=== PATIENT | female | born 1950 | race Two or more races ===

== ENCOUNTER 2024-09-29 13:31 | Inpatient (IN) | payer OTHER ==
[~2024-09-29] VITALS: Ht 157.5 cm; Wt 73.4 kg
--- NOTE | 2024-09-29 14:12 | DVH ---
CHEST RADIOGRAPH Indication: sob Technique: Single frontal view of the chest was obtained Comparison: None FINDINGS: Lines and Tubes: None Lungs: No focal consolidation. Pleura: No effusion. No pneumothorax. Cardiomediastinal contours: Unremarkable Bones: No acute osseous abnormality. IMPRESSION: 1. No acute cardiopulmonary disease. HS:Y
[2024-09-29] MEDS: SODIUM CHLORIDE 0.9% 1,000 ML IV ONE (14:14)
[2024-09-29] MEDS: AMIODARONE BOLUS KIT 100 ML IV ONE (14:14)
[2024-09-29 14:15] VITALS: PULSE 207; RESP 20; O2SAT 95
--- NOTE | 2024-09-29 14:15 | ED.PDOC ---
Bin. trauma (HPI) HPI Comments 74 y/o F, with PMhx of HTN, ESRD, and osteoporosis presents to the ED for CC of fall injury. Patient states, she had a fall yesterday (09/28/22) and was seen at [facility] and was relayed to the ED d/t abnormal EKG. Upon arrival to the ED, patient's EKG showed a HR at 153 with AFib, RVR. Follow ing trauma, patient c/o right sided pain. Patient denies chest pain, shortness of breath, headache, dizziness, numbness, or weakness. No other symptoms or modifying factors are present at this time. Chief Complaint: Fall Injury Time Seen by MD: 14:00 Reviewed notes: Nurses Notes, Medications, Allergies Allergies: Coded Allergies: Iodine (Verified Allergy, Unknown, 09/29/24) Latex (Verified Allergy, Unknown, 09/29/24) Information Source: Patient Mode of Arrival: Ambulatory Severity: Moderate Timing: Days Duration: Since onset Prehospital treatment: None Location: Other (right side) Location of laceration: None Mechanism: Fall Associated signs and symtoms: None Past Medical History PAST MEDICAL HISTORY: Denies Surgical History: Denies all surgeries STILL PHOTOGRAPHER History: Denies all STILL PHOTOGRAPHER Hx Family History Family History: Unknown Social History Smoker: Non-Smoker Alcohol: Denies ETOH Use Drugs: Denies Drug Use Lives In: Home Constitutional: denies: chills, diaphoresis, fatigue, fever, malaise, sweats, weakness, others EENTM: denies: blurred vision, double vision, ear bleeding, ear discharge, ear drainage, ear pain, ear ringing, eye pain, eye redness, hearing loss, mouth pain, mouth swelling, nasal discharge, nose bleeding, nose congestion, nose pain, photophobia, tearing, throat pain, throat swelling, voice changes, others Respiratory: denies: cough, hemoptysis, orthopnea, SOB at rest, shortness of breath, SOB with excertion, stridor, wheezing, others Cardiovascular: denies: chest pain, dizzy spells, diaphoresis, Dyspnea on exertion, edema, irregular heart beat, left arm pain, lightheadedness, palpitations, PND, syncope, others Gastrointestinal: denies: abdomen distended, abdominal pain, blood streaked bowels, constipated, diarrhea, dysphagia, difficulty swallowing, hematemesis, melena, nausea, poor appetite, poor fluid intake, rectal bleeding, rectal pain, vomiting, others Genitourinary: denies: abnormal vagina bleeding, burning, dyspareunia, dysuria, flank pain, frequency, hematuria, incontinence, pain, , vagina discharge, urgency, others Neurological: denies: dizziness, fainting, headache, left sided numbness, left sided weakness, numbness, paresthesia, pre-existing deficit, right sided numbness, right sided weakness, seizure, speech problems, tingling, tremors, weakness, others Musculoskeletal: reports: others (right sided pain); denies: back pain, gout, joint pain, joint swelling, muscle pain, muscle stiffness, neck pain Integumetry: denies: bruises, change in color, change in hair/nails, dryness, laceration, lesions, lumps, rash, wounds, others Allergic/Immunocompromised: denies: Difficulty Healing, Frequent Infections, Hives, Itching, others Hematologic/Lymphatic: denies: anemia, blood clots, easy bleeding, easy bruising, swollen glands, others Endocrine: denies: excessive hunger, excessive sweating, excessive thirst, excessive urination, flushing, intolerance to cold, intolerance to heat, unexplained weight gain, unexplained weight loss, others Psychiatric: denies: anxiety, bipolar disorder, depression, hopeless, panic disorder, schizophrenia, sleepless, suicidal, others All Other Systems: Reviewed and Negative Physical Exam General Appearance: Moderate Distress HEENT: Normal ENT Inspection, Pharynx Normal, TMs Normal Neck: Full Range of Motion, Non-Tender, Normal, Normal Inspection Respiratory: Chest Non-Tender, Lungs Clear, No Accessory Muscle Use, No Respiratory Distress, Normal Breath Sounds Cardiovascular: Irregular, Tachycardia Breast Exam: Deferred Gastrointestinal: No Organomegaly, Non Tender, No Pulsatile Mass, Normal Bowel Sounds, Soft Genitalia: Deferred Pelvic: Deferred Rectal: Deferred Extremities: No calf tenderness, No pedal edema Musculoskeletal : Apperance: Normal Neurologic: Alert Cerebellar Function: NOT DONE Reflexes: NOT DONE Skin: Dry, Normal Color, Warm Peripheral Pulses: 3+ Radial (R), 3+ Radial (L) Lymphatic: No Adenopathy Was a procedure done? Was a procedure done?: No EKG EKG : Pulse Rate (adult): 153 [place]: Normal Cardiac Rhythm: Afib Block: None Hypertrophy: None ST: Normal Comments rapid ventricular response Differential Diagnosis Multiple Trauma: Fractures, Spine Injury, Hematoma X-Ray, Labs, Meds, VS Vital Signs Date Time Temp Pulse Resp B/P (MAP) Pulse Ox O2 Delivery O2 Flow Rate FiO2 09/29/24 16:00 45 12 148/93 (111) 99 09/29/24 15:00 48 15 143/91 (108) 98 09/29/24 14:14 153 09/29/24 14:08 207 25 129/82 (98) 95 09/29/24 13:33 97.8 86 16 138/89 97 97.8 Lab Test 09/29/24 14:08 Range/Units White Blood Count 7.4 4.4-10.8 10^3/uL Red Blood Count 5.04 4.0-5.20 10^6/uL Hemoglobin 15.9 12.2-16.2 g/dL Hematocrit 46.3 H 36.0-46.0 % Mean Corpuscular Volume 92.0 80.0-100.0 fL Mean Corpuscular Hemoglobin 31.5 28.0-32.0 pg Mean Corpuscular Hemoglobin Concent 34.3 32.0-36.0 g/dL Red Cell Distribution Width 13.4 11.8-14.3 % Platelet Count 216 140-450 10^3/uL Mean Platelet Volume 9.3 6.9-10.8 fL Neutrophils (%) (Auto) 66.8 37.0-80.0 % Lymphocytes (%) (Auto) 26.0 10.0-50.0 % Monocytes (%) (Auto) 5.2 0.0-12.0 % Eosinophils (%) (Auto) 1.5 0.0-7.0 % Basophils (%) (Auto) 0.5 0.0-2.0 % Neutrophils # (Auto) 4.9 1.6-8.6 10 ^3/uL Lymphocytes # (Auto) 1.9 0.4-5.4 10 ^3/uL Monocytes # (Auto) 0.4 0-1.3 10 ^3/uL Eosinophils # (Auto) 0.1 0-0.8 10 ^3/uL Basophils # (Auto) 0 0-0.2 10 ^3/uL Nucleated Red Blood Cells 0.1 % Sodium Level 142 136-145 mmol/L Potassium Level 4.2 3.5-5.1 mmol/L Chloride Level 106 98-107 mmol/L Carbon Dioxide Level 25 20-31 mmol/L Anion Gap 11 5-15 Blood Urea Nitrogen 16 9-23 mg/dL Creatinine 0.86 0.550-1.02 mg/dL Glomerular Filtration Rate Calc 70 >90 mL/min BUN/Creatinine Ratio 18.6 10.0-20.0 Serum Glucose 105 74-106 mg/dL Calcium Level 9.5 8.7-10.4 mg/dL Troponin I High Sensitivity 301 *H </=34 ng/L Current Medications Medications (Trade) Dose Ordered Sig/Holli Route Start Time Stop Time Status Last Admin Sodium Chloride 1,000 ml @ 150 mls/hr Q6H40M ONCE IV 09/29/24 14:00 09/29/24 20:39 09/29/24 14:14 Amiodarone HCl 100 ml @ 600 mls/hr ONCE ONCE IV 09/29/24 14:00 09/29/24 14:09 DC 09/29/24 14:14 [place] [id number] Ph: [phone] DIAGNOSTIC IMAGING Diagnostic Imaging Report : [id number] Signed PATIENT: FLIP GREY ACCT: [id number] UNIT: [id number] : 1950 LOC: ER ROOM / BED: / AGE / SEX: 74 / F ADM STATUS: REG ER SERVICE 1347 ORDERING PHYSICIAN: JENNIFER EASON MD PROCEDURE(s): CXRP - CHEST PORTABLE REASON: sob ORDER NUMBER(s): [id number], ACCESSION NUMBER(s): [id number] CHEST RADIOGRAPH Indication: sob Technique: Single frontal view of the chest was obtained Comparison: None FINDINGS: Lines and Tubes: None Lungs: No focal consolidation. Pleura: No effusion. No pneumothorax. Cardiomediastinal contours: Unremarkable Bones: No acute osseous abnormality. IMPRESSION: 1. No acute cardiopulmonary disease. HS:Y ATED BY: FLY BOCANEGRA Jr., DO DICTATED DATE/TIME: 09/29/24 1409 SIGNED BY: FLY BOCANEGRA Jr., DO SIGNED DATE/TIME: 09/29/24 1409 CC: Patient alert. Status post fall. Heart rate irregular. Answering questions. EKG does show atrial fibrillation. Started amiodarone. Chest x-ray reviewed does not show any acute changes. Cardiac marker elevated. CT of the head reviewed does show relax brain. Was given Lovenox. Explained to the patient. Continue monitoring. Time of 1ST Reevaluation: 14:30 Reevaluation 1ST: Unchanged Patient Education/Counseling: Diagnosis, Treatment Family Education/Counseling: No Family Present Departure 1 Departure Time of Disposition: 16:44 Impression: Primary Impression: Atrial fibrillation Qualified Codes: I48.0 - Paroxysmal atrial fibrillation Additional Impression: Demand ischemia Disposition: ADMITTED INPATIENT Admit to: Med Surg Condition: Guarded Critical Care Note Critical Care Time?: Yes (90 min-critical care time only) Critical care comment: Started amiodarone Stability Stability form required: No Heart Score Heart Score: Heart Score Response (Comments) Value History Slightly Suspicious 0 EKG Normal 0 Age >65 2 Risk Factors >3 or Hx ASHD 2 Troponin >3 x's Normal limit 2 Total 6 I personally scribed for JENNIFER EASON MD ([email or web address]) on 09/29/24 at 14:14. Electronically submitted by Amy Millard ([email or web address]). I personally scribed for JENNIFER EASON MD ([email or web address]) on 09/29/24 at 15:25. Electronically submitted by Amy Millard [email or web address]). JENNIFER EASON MD Sep 29, 2024 14:14
[2024-09-29 14:22] LABS: Hematocrit 46.3 % (36.0-46.0); Hemoglobin 15.9 g/dL (12.2-16.2); Mean Corpuscular Hemoglobin 31.5 pg (28.0-32.0); Mean Corpuscular Volume 92.0 fL (80.0-100.0); Nucleated Red Blood Cells % 0.1 %
[2024-09-29 14:28] LABS: Anion Gap 11 (5-15); Carbon Dioxide 25 mmol/L (20-31); Chloride 106 mmol/L (98-107); Potassium 4.2 mmol/L (3.5-5.1); Sodium 142 mmol/L (136-145)
[2024-09-29 14:29] LABS: Calcium 9.5 mg/dL (8.7-10.4)
[2024-09-29] MEDS: AMIODARONE 360mg/200mL PREMIX 200 ML IV ONE (14:30)
[2024-09-29 14:34] LABS: BUN/Creatinine Ratio 18.6 (10.0-20.0); Blood Urea Nitrogen 16 mg/dL (9-23); Glucose 105 mg/dL (74-106)
--- NOTE | 2024-09-29 17:39 | DVH ---
EXAM: XY R ELBOW 2V XRAY REASON FOR EXAM: FALL TECHNIQUE: AP, oblique, and lateral views of the right elbow are submitted for review. COMPARISON: None FINDINGS: The bones demonstrate grossly normal mineralization. There is no acute fracture or dislocat ion. There is no elbow effusion. The soft tissues are unremarkable. IMPRESSION: No acute fracture or dislocation.
--- NOTE | 2024-09-29 17:58 | DVHHP2 ---
History of Present Illness Reason for Visit: Passing out spell History of Present Illness 74-year-old female who had a fall at home after she blacked out. Patient denies any chest pain palpitation lightheadedness or dizziness. Denies any seizure- like activities. In the ER patient was found to have AFib with RVR requiring IV amiodarone drip. Patient's became Babatunde currently IV amiodarone has been shut down. Patient is currently denies any chest pain shortness of breaths. Patient did have a previous episode of similar kind about two months ago but did not seek any medical intervention. Cardiovascular: HTN Musculoskeletal: Other (Osteoporosis) Past Surgical History: Cholecystectomy, Hysterectomy Family History: None Smoke: No ALCOHOL: none Review of Systems Review of Systems 12 review of system are negative besides mentioned above. Allergies: Coded Allergies: Iodine (Verified Allergy, Unknown, 09/29/24) Latex (Verified Allergy, Unknown, 09/29/24) Exam Vital Signs Vital Signs Date Time Temp Pulse Resp B/P (MAP) Pulse Ox O2 Delivery O2 Flow Rate FiO2 09/29/24 16:00 45 12 148/93 (111) 99 09/29/24 13:33 97.8 97.8 Exam HEENT pupils are reactive Neck is supple CV is S1-S2 irregularly irregular rate and rhythm with a rate between 48-50 Respiratory diminished breath sounds bases GI positive bowel sound Extremity no edema PROFESSIONAL NURSE no motor deficit Labs/Xrays Labs Test 09/29/24 14:08 Range/Units White Blood Count 7.4 4.4-10.8 10^3/uL Red Blood Count 5.04 4.0-5.20 10^6/uL Hemoglobin 15.9 12.2-16.2 g/dL Hematocrit 46.3 H 36.0-46.0 % Mean Corpuscular Volume 92.0 80.0-100.0 fL Mean Corpuscular Hemoglobin 31.5 28.0-32.0 pg Mean Corpuscular Hemoglobin Concent 34.3 32.0-36.0 g/dL Red Cell Distribution Width 13.4 11.8-14.3 % Platelet Count 216 140-450 10^3/uL Mean Platelet Volume 9.3 6.9-10.8 fL Neutrophils (%) (Auto) 66.8 37.0-80.0 % Lymphocytes (%) (Auto) 26.0 10.0-50.0 % Monocytes (%) (Auto) 5.2 0.0-12.0 % Eosinophils (%) (Auto) 1.5 0.0-7.0 % Basophils (%) (Auto) 0.5 0.0-2.0 % Neutrophils # (Auto) 4.9 1.6-8.6 10 ^3/uL Lymphocytes # (Auto) 1.9 0.4-5.4 10 ^3/uL Monocytes # (Auto) 0.4 0-1.3 10 ^3/uL Eosinophils # (Auto) 0.1 0-0.8 10 ^3/uL Basophils # (Auto) 0 0-0.2 10 ^3/uL Nucleated Red Blood Cells 0.1 % Sodium Level 142 136-145 mmol/L Potassium Level 4.2 3.5-5.1 mmol/L Chloride Level 106 98-107 mmol/L Carbon Dioxide Level 25 20-31 mmol/L Anion Gap 11 5-15 Blood Urea Nitrogen 16 9-23 mg/dL Creatinine 0.86 0.550-1.02 mg/dL Glomerular Filtration Rate Calc 70 >90 mL/min BUN/Creatinine Ratio 18.6 10.0-20.0 Serum Glucose 105 74-106 mg/dL Calcium Level 9.5 8.7-10.4 mg/dL Troponin I High Sensitivity 301 *H </=34 ng/L SEPSIS Sepsis Screen Date sepsis recognized/suspect: Sep 29, 2024 Time Sepsis recognized/suspect: 1333 Recent Procedure: No On Antibiotic Therapy: No Respiratory Rate >20: No Heart Rate >90: No Temp<36 C (96.8 F) or >38.3 C: No SBP <90 or MAP <65 mmHG: No New Acute Mental Status Change: No Is the patient on CPAP, BIPAP,: No Physician Orders Chest Portable (09/29/24 13:47) Urinalysis (09/29/24 13:47) Sodium Chloride 0.9% (09/29/24 14:00) Amiodarone 360mg/200ml Premix (Nexterone (09/29/24 14:00) Head Without Contrast (09/29/24 16:47) R Elbow 2v Xray (09/29/24 16:56) Admit (09/29/24 17:49) Code Status (09/29/24 17:49) 2 Gm Sodium Diet (09/29/24 Dinner) Hydrocodone-Acet 5/325mg Tab ([place] 5/32 (09/29/24 18:00) Ondansetron Hcl (Zofran) (09/29/24 18:00) Docusate Sodium Capsule (Colace Capsule) (09/29/24 18:00) Fall Risk Precautions In Place QSHIFT (09/29/24 17:49) Complete Blood Count (09/30/24 04:00) Comprehensive Metabolic Panel (09/30/24 04:00) Pt Request For Service (09/29/24 17:49) Echo 2d Mode Cardiac Dop (09/29/24 17:49) Condition: Fair (09/29/24 17:49) Acetaminophen Tablet (Tylenol Tablet) (09/29/24 18:00) Morphine Sulfate Injection (09/29/24 18:00) Nitroglycerin Sublingual (Ntrostat Subli (09/29/24 18:00) Morphine Sulfate Injection (09/29/24 18:00) Stat Ekg For Chest Pain (09/29/24 17:49) Notify Md Of Changes From Base (09/29/24 17:49) Freelance [address] Stenographer For 24 Hours (09/29/24 17:49) Emergency Dysrhythmia Protocol (09/29/24 17:49) Rhythm Strips Once Every Shift (09/29/24 17:49) Oxygen By Nasal Cannula (09/29/24 17:49) * Cardiology Consult (09/29/24 17:49) Troponin-I Hs (09/29/24 22:00) Troponin-I Hs (09/30/24 06:00) Troponin-I Hs (09/29/24 18:49) Troponin-I Hs (09/29/24 20:49) Enoxaparin Sodium (Lovenox) (09/30/24 06:00) Aspirin Tablet (09/30/24 10:00) Atorvastatin (Lipitor) (09/29/24 22:00) Vital Signs Date Time Temp Pulse Resp B/P (MAP) Pulse Ox O2 Delivery O2 Flow Rate FiO2 09/29/24 16:00 45 12 148/93 (111) 99 09/29/24 15:00 48 15 143/91 (108) 98 09/29/24 14:14 153 09/29/24 14:08 207 25 129/82 (98) 95 09/29/24 13:33 97.8 86 16 138/89 97 97.8 Laboratory Tests Test 09/29/24 14:08 White Blood Count 7.4 10^3/uL (4.4-10.8) Medications Medications Dose Ordered Sig/Holli Route Start Time Stop Time Status Last Admin Dose Admin Amiodarone HCl 100 ml @ 600 mls/hr ONCE ONCE IV 09/29/24 14:00 09/29/24 14:09 DC 09/29/24 14:14 600 MLS/HR Sodium Chloride 1,000 ml @ 150 mls/hr Q6H40M ONCE IV 09/29/24 14:00 09/29/24 20:39 09/29/24 14:14 150 MLS/HR Assessment/Plan Assessment/Plan 74-year-old female with a known history of hypertension, history of osteoporosis who initially presented to the hospital with a passing out spell after she had a fall found to have 1. AFib with RVR 2. Syncope ruled out cardiac arrhythmia 3. Elevated troponin suspect demand ischemia secondary to AFib with a RVR, ruled out acute UT 4. Hypertension -admitted to telemetry, aspirin, statin, therapeutic Lovenox, 2D echo, cardiology consultation. Plan discussed with: Patient, Daughter My Orders Orders - ИРИНА MCKEE MD Procedure Category Date Status Time Admit ADMIT 09/29/24 Transmitted 17:49 Code Status CODE 09/29/24 Transmitted 17:49 2 Gm Sodium Diet DIET 09/29/24 Transmitted Dinner Hydrocodone-Acet PHA 09/29/24 Transmitted 5/325mg Tab ([place] 18:00 Ondansetron Hcl PHA 09/29/24 Transmitted (Zofran) 18:00 Docusate Sodium PHA 09/29/24 Transmitted Capsule (Colace 18:00 Fall Risk Precautions LAURENT 09/29/[address] 17:49 Complete Blood Count LAB 09/30/24 Verified 04:00 Comprehensive LAB 09/30/24 Verified Metabolic Panel 04:00 Pt Request For Service PT 09/29/24 Transmitted 17:49 Echo 2d Mode Cardiac US 09/29/24 Transmitted DOP 17:49 Condition: Fair LAURENT 09/29/24 Transmitted 17:49 Acetaminophen Tablet PHA 09/29/24 Transmitted (Tylenol Tablet) 18:00 Morphine Sulfate PHA 09/29/24 Transmitted Injection 18:00 Nitroglycerin PHA 09/29/24 Transmitted Sublingual (Ntrostat 18:00 Morphine Sulfate PHA 09/29/24 Transmitted Injection 18:00 Stat Ekg For Chest LAURENT 09/29/24 Transmitted Pain 17:49 Notify Of Changes [facility] 09/29/24 Transmitted From Base 17:[address] Stenographer For [facility] 09/29/24 Transmitted 24 Hours 17:49 Emergency Dysrhythmia [facility] 09/29/24 Transmitted Protocol 17:49 Rhythm Strips Once [facility] 09/29/24 Transmitted Every Shift 17:49 Oxygen By Nasal RT 09/29/24 Transmitted Cannula 17:49 * Cardiology Consult CONS 09/29/24 Transmitted 17:49 Troponin-I Hs LAB 09/29/24 Transmitted 22:00 Troponin-I Hs LAB 09/30/24 Verified 06:00 Troponin-I Hs LAB 09/29/24 Transmitted 18:49 Troponin-I Hs LAB 09/29/24 Transmitted 20:49 Enoxaparin Sodium PHA 09/30/24 Transmitted (Lovenox) 06:00 Aspirin Tablet PHA 09/30/24 Transmitted 10:00 Atorvastatin (Lipitor) PHA 09/29/24 Transmitted 22:00 Date of Service: Sep 29, 2024 Billing Provider: ИРИНА MCKEE MD Common Visit Codes: NOT BILLABLE ИРИНА MCKEE MD Sep 29, 2024 17:58
[2024-09-29] MEDS ORDERED: MORPHINE SULFATE INJ 2 MG/ml SYRG IV PRN ×2 (18:00)
[2024-09-29] MEDS ORDERED: ONDANSETRON HCL 4 MG/2 ML VIAL IV PRN (18:00)
[2024-09-29] MEDS ORDERED: NITROGLYCERIN 0.4 MG SL TAB SL PRN (18:00)
[2024-09-29] MEDS ORDERED: HYDROcodone-ACET 5/325MG TAB PO PRN (18:00)
[2024-09-29] MEDS ORDERED: DOCUSATE SOD 100 MG CAP PO PRN (18:00)
[2024-09-29] MEDS ORDERED: ACETAMINOPHEN 325 MG TAB PO PRN (18:00)
--- NOTE | 2024-09-29 18:03 | DVH ---
Exam: CT HEAD WITHOUT CONTRAST History: fall Technique: [address] images through the posterior fossa and the supratentorial compart ment were acquired without contrast and imaged using soft tissue and bone algorithms. RADIATION DOSE: DLP 835.1 mGy.cm; CTDI vol 52.09 mGy. Comparison: None Findings: There is no evidence of an intracranial hemorrhage, acute large vessel infarct, mass effect, or midli ne shift. There is moderate cerebral atrophy. No significant calcification of the carotid siphons. The calvarium, orbits, paranasal sinuses, sella, middle ears, and mastoids are unremarkable. The superficial soft tissues are within normal limits. Impression: 1. No acute intracranial abnormality.
[2024-09-29] MEDS: ENOXAPARIN SOD 80 MG/0.8ML SYRINGE SC ONE (18:56)
[2024-09-29 18:58] LABS: Urine Protein, UAD Negative (Negative)
[2024-09-29 20:41] VITALS: BP 162/94; PULSE 52; RESP 17; TEMP 98.4; O2SAT 96
[2024-09-29 20:50] VITALS: BP 162/94; PULSE 52; RESP 17; TEMP 98.4; O2SAT 96
[2024-09-29] MEDS: ATORVASTATIN 20 MG TAB PO SCH (22:31)
[2024-09-30] VITALS (7 sets, daily range): BP systolic 115–148; BP diastolic 76–86; PULSE 41–56; RESP 16–18; TEMP 36.4; O2SAT 94–96
[2024-09-30] MEDS: ENOXAPARIN SOD 80 MG/0.8ML SYRINGE SC SCH (06:25)
[2024-09-30 07:36] LABS: Hematocrit 39.8 % (36.0-46.0); Hemoglobin 13.7 g/dL (12.2-16.2); Mean Corpuscular Hemoglobin 31.5 pg (28.0-32.0); Mean Corpuscular Volume 91.6 fL (80.0-100.0); Nucleated Red Blood Cells % 0.0 %
[2024-09-30] MEDS ORDERED: LISI2.5T47 PO (07:44)
[2024-09-30] MEDS ORDERED: MULT-1018 PO (07:46)
[2024-09-30] MEDS ORDERED: PROBCAP38 OR (07:46)
[2024-09-30 07:55] LABS: Alanine Aminotransferase 39 U/L (7-40); Alkaline Phosphatase 81 U/L (46-116); Anion Gap 9 (5-15); Calcium 8.8 mg/dL (8.7-10.4); Carbon Dioxide 29 mmol/L (20-31); Chloride 105 mmol/L (98-107); Glucose 102 mg/dL (74-106); Potassium 4.2 mmol/L (3.5-5.1); Sodium 143 mmol/L (136-145)
[2024-09-30 07:56] LABS: BUN/Creatinine Ratio 22.8 (10.0-20.0); Blood Urea Nitrogen 21 mg/dL (9-23); Total Protein 6.1 g/dL (5.7-8.2)
[2024-09-30 07:57] LABS: Albumin 3.8 g/dL (3.2-4.8)
[2024-09-30 07:58] LABS: Bilirubin, Total 0.9 mg/dL (0.2-1.0)
--- NOTE | 2024-09-30 13:58 | DVHSR ---
APPROVED REPORT EXAM: Two-dimensional and M-mode echocardiogram with Doppler, color Doppler and Bubble Study. Blood Pressure: 125/86 mmHg INDICATION Atrial Fibrillation RISK FACTORS Height: 5'2", Weight: 161 DIMENSIONS LVDd4.7 (3.8-5.7cm)LA (2D)4.4 (1.9-4.0cm)Aortic Root (2.0-3.7cm) LVDs3.0 (2.5-4.0cm)LA (MM) (1.9-4.0cm)Aortic Cusp Exc (1.5-2.0cm) EF (%) 64.0 (55-70%)Rt. Atrium5.0 (1.9-4.0cm)Asc. Aorta2.8 cm IVSd1.1 (0.7-1.1cm)RV (D) (1.8-2.4cm) PWd1.1 (0.7-1.1cm) Mitral Valve MitralMitral Stenosis E wave0.76m/sMV Mean GR.mmHg A wave0.53m/sMV Peak GR.mmHg E/A ratio1.42D MVAcm2 DECEL [id number] 1/2 Tim[place] Aortic Valve Aortic ValveAortic Stenosis V10.95m/[place] Mean GR.3mmHg V21.20m/[place] Peak GR.6mmHg LVOT Diameter2.0 (1.8-2.4cm)Doppler AVA2.49cm2 Pulmonic Valve V20.89m/s Tricuspid Valve TR Velocity2.61m/s [id number] Other Information Quality : Technically LimitedRhythm : Technically limited study due to body habitus. Conclusion lvef 60% MODERATE lvh normal rv function no severe valve abnormalites noted biatrial enlargement mild tricuspid regurg
[2024-09-30] MEDS ORDERED: APIX5TAB PO (16:25)
--- NOTE | 2024-09-30 16:30 | DVHDS2 ---
Discharge Summary Date of Admission Sep 29, 2024 at 17:49 Date of Discharge: Sep 30, 2024 Labs/Diagnostic Data: Laboratory Results Test 09/30/24 07:06 09/29/24 18:10 White Blood Count 4.9 10^3/uL (4.4-10.8) Red Blood Count 4.34 10^6/uL (4.0-5.20) Hemoglobin 13.7 g/dL (12.2-16.2) Hematocrit 39.8 % (36.0-46.0) Mean Corpuscular Volume 91.6 fL (80.0-100.0) Mean Corpuscular Hemoglobin 31.5 pg (28.0-32.0) Mean Corpuscular Hemoglobin Concent 34.4 g/dL (32.0-36.0) Red Cell Distribution Width 13.1 % (11.8-14.3) Platelet Count 169 10^3/uL (140-450) Mean Platelet Volume 9.4 fL (6.9-10.8) Neutrophils (%) (Auto) 59.7 % (37.0-80.0) Lymphocytes (%) (Auto) 30.5 % (10.0-50.0) Monocytes (%) (Auto) 6.5 % (0.0-12.0) Eosinophils (%) (Auto) 2.8 % (0.0-7.0) Basophils (%) (Auto) 0.5 % (0.0-2.0) Neutrophils # (Auto) 2.9 10 ^3/uL (1.6-8.6) Lymphocytes # (Auto) 1.5 10 ^3/uL (0.4-5.4) Monocytes # (Auto) 0.3 10 ^3/uL (0-1.3) Eosinophils # (Auto) 0.1 10 ^3/uL (0-0.8) Basophils # (Auto) 0 10 ^3/uL (0-0.2) Nucleated Red Blood Cells 0.0 % Sodium Level 143 mmol/L (136-145) Potassium Level 4.2 mmol/L (3.5-5.1) Chloride Level 105 mmol/L (98-107) Carbon Dioxide Level 29 mmol/L (20-31) Anion Gap 9 (5-15) Blood Urea Nitrogen 21 mg/dL (9-23) Creatinine 0.92 mg/dL (0.550-1.02) Glomerular Filtration Rate Calc 65 mL/min (>90) BUN/Creatinine Ratio 22.8 (10.0-20.0) Serum Glucose 102 mg/dL (74-106) Calcium Level 8.8 mg/dL (8.7-10.4) Total Bilirubin 0.9 mg/dL (0.2-1.0) Aspartate Amino Transferase (AST) 33 U/L (13-40) Alanine Aminotransferase (ALT) 39 U/L (7-40) Alkaline Phosphatase 81 U/L (46-116) Troponin I High Sensitivity 232 ng/L (</=34) Total Protein 6.1 g/dL (5.7-8.2) Albumin 3.8 g/dL (3.2-4.8) Urine Color Light-yellow (Yellow) Urine Clarity Clear (Clear) Urine pH 5.5 (5.0-9.0) Urine Specific Valentine 1.013 (1.001-1.035) Urine Protein Negative (Negative) Urine Ketones Negative (Negative) Urine Blood Negative /uL (Negative) Urine Nitrite Negative (Negative) Urine Bilirubin Negative (Negative) Urine Urobilinogen Normal mg/dL (Negative) Urine Leukocyte Esterase Trace /uL (Negative) Urine RBC 3 /hpf (0 - 4) Urine Microscopic WBC 5 /HPF (0-5) Urine Squamous Epithelial Cells Few /hpf (<5) Urine Bacteria None seen /hpf (None Seen) Urine Glucose Normal mg/dL (Normal) Other Laboratory Tests 09/30/24 07:06 Brief Hx & Hospital Course: 74-year-old female with a known history of hypertension, history of osteoporosis who initially presented to the hospital with a near-syncope although she remembers everything found to have AFib with RVR requiring IV amiodarone drip. Patient became bradycardiac amiodarone drip was stopped. The patient is still bradycardic can not start any beta luna. Cardiology evaluated the patient echo looks good patient should be on anticoagulation. Risks benefits and alternatives of anticoagulation including life-threatening bleeding, disability, explained with the patient in detail who understand verbalized understanding and agreeable to plan. Please follow up with PCP and Cardiology upon discharge. Condition at Discharge: Stable Final Diagnosis/Problems List 74-year-old female with a known history of hypertension, history of osteoporosis who initially presented to the hospital with a passing out spell after she had a fall found to have 1. AFib with RVR currently bradycardic 2. Syncope ruled out cardiac arrhythmia 3. Elevated troponin suspect demand ischemia secondary to AFib with a RVR, ruled out acute MN 4. Hypertension Discharge Disposition: Home with Health Services SNF Discharge Will this Physician continue t: No Discharge Instruct/Medications Diet: Cardiac 2g Na,low cholest Activity: No Restrictions, As Tolerated Follow Up/Referral: Follow up with the PCP and Cardiology in 1 week Medications: Eliquis as prescribed. New Medications: Apixaban Base (Eliquis) 5 Mg Tab 5 MG PO BID for 60 Days, #120 TAB Continued Medications: Lisinopril (Lisinopril) 2.5 Mg Tab 5 MG PO DAILY, TAB Multiple Vitamin (Multivitamins) Tab 1 TAB PO DAILY, #90 TAB 3 Refills Probiotic Product (Probiotic Daily) Daily Cap 1 OR, CAP Scheduled Apixaban Base (Eliquis), 5 MG PO BID Lisinopril (Lisinopril), 5 MG PO DAILY, (Reported) Multiple Vitamin (Multivitamins), 1 TAB PO DAILY, (Reported) Miscellaneous Medications Probiotic Product (Probiotic Daily), 1 OR, (Reported) Discharge Statement: "Patient was advised to return to the ER or call 911 if any headaches, dizziness, shortness of breath, chest pain, abdominal pain, bleeding, fevers, or worsening of medical condition. Patient was counseled about treatment plan, medications, possible side effects, patientverbalized understanding. All questions were answered to the best of my ability. This discharge took greater then 30 minutes in planning, reviewing documentation, counseling the patient, and discussing with other team members." ASSESSMENT ASSESSMENT Assessment 74-year-old female with a known history of hypertension, history of osteoporosis who initially presented to the hospital with a passing out spell after she had a fall found to have 1. AFib with RVR currently bradycardic 2. Syncope ruled out cardiac arrhythmia 3. Elevated troponin suspect demand ischemia secondary to AFib with a RVR, ruled out acute [place] 4. Hypertension Date of Service: Sep 30, 2024 Billing Provider: ИРИНА MCKEE MD Common Visit Codes: NOT BILLABLE ИРИНА MCKEE MD Sep 30, 2024 16:30
--- NOTE | 2024-09-30 20:56 | DVHINCON2 ---
DATE OF CONSULTATION: 09/30/2024 REFERRING PHYSICIAN: Dr. Cardona. CONSULTING PHYSICIAN: Lenin José MD. INDICATION: AFib. HISTORY OF PRESENT ILLNESS: The patient is a 74-year-old female with history of hypertension and CKD, presented to the hospital, status post fall. The patient is not quite sure if she had loss of consciousness at the time, but she states she remembers going down. In the ER, she was noted to be in AFib with RVR. Heart rate in the 150s. She was started on amiodarone. The patient converted to sinus rhythm and became bradycardic. Heart rate in the 40s and 50s. Amiodarone was discontinued. Currently, she is asymptomatic. She denies any chest pain or shortness of breath. She denies any prior history of heart disease known to her. PAST MEDICAL HISTORY: * Hypertension. * CKD. MEDICATIONS: Per med rec. ALLERGIES: IODINE. PHYSICAL EXAMINATION: GENERAL: Alert and awake, in no form of acute cardiopulmonary distress. VITAL SIGNS: Blood pressure 138/80, pulse 44, pulmonary saturation 95%. HEENT: No carotid bruits. No jugular venous distention. CHEST: Bilateral air entry. ____. CARDIOVASCULAR SYSTEM: Precordial and carotid pulses palpable. Normal S1, S2. Bradycardia. EXTREMITIES: No peripheral edema. DIAGNOSTIC DATA: CBC is normal. Sodium 143, potassium 4.2, creatinine 0.9. Troponin first set is 301, second set ____ third set is 232. ASSESSMENT: * Status post fall. * AFib with RPR, ____ currently sinus rhythm. * Sinus bradycardia. * Elevated troponin, likely secondary to demand ischemia. * CKD. * History of hypertension. RECOMMENDATIONS: * Avoid nova blocking agents. * The patient needs long-term anticoagulation therapy. * Start Eliquis 5 mg twice a day. * Monitor electrolytes. * Monitor heart rate closely. * We will review echo once completed. * Continue tele-monitor for now. Thank you for allowing me to participate in the care of this patient. MD SALUD Mix/JIMMY/SEVEN TID: [id number] RECEIPT: [id number]
== END 2024-09-30 19:22 | disposition home or self-care (01) | DRG 308 ==
LOC: ER 13:31 → OVERFLOW 17:49 → TELE-EAST 20:41
PROVIDERS: ADMIT Internal Medicine; ATTEND Internal Medicine
DX: I48.91 Unspecified atrial fibrillation (principal); N18.6 End stage renal disease; I24.89 Other forms of acute ischemic heart disease; I12.0 Hypertensive chronic kidney disease with stage 5 chronic kidney disease or end stage renal disease; R00.1 Bradycardia, unspecified; M81.0 Age-related osteoporosis without current pathological fracture; Z90.710 Acquired absence of both cervix and uterus; Z90.49 Acquired absence of other specified parts of digestive tract; Z91.040 Latex allergy status; Z91.041 Radiographic dye allergy status
CPT/HCPCS: 36415; 70450; 71045; 73070; 80048; 80053; 81001; 84484; 85025; 93306; 97163; 99291; 99292; G0378